=== PATIENT | female | born 2000 ===

== ENCOUNTER 2025-04-17 18:34 | Observation (INO) ==
[2025-04-17 19:07] VITALS: RESP 16; TEMP 97.7
[2025-04-17 19:09] VITALS: BP 121/76
[2025-04-17 19:43] LABS: Amphetamines+Metham, Urine Neg (Neg); MDMA (Ecstacy), Urine Neg (Neg); Marijuana, Urine Neg (Neg)
[2025-04-17 19:49] VITALS: PULSE 113; O2SAT 93
--- NOTE | 2025-04-18 07:59 | History & Physical Report ---
Date of Service April 17, 2025 Assessment & Plan (1) False labor after 37 completed weeks of gestation: Plan: Cindi is a 25-year-old G5, P4 at 39 weeks gestational age per patient report. Records not available at time of visit and she sees [facility] in [place]. Patient reporting bleeding and contractions. No bleeding noted on exam and photos of documented bleeding was mild slightly blood-tinged mucousy discharge. Cervix unchanged after labor evaluation. Contractions mild and irregular based on palpation and tocometer findings. Reactive NST noted throughout visit. Greater than 30 minutes spent in review of history, exam and discussion Admission and Anticipated Discharge Date Admission Date: April 17, 2025 History of Present Illness Primary Care Provider: NO PCP Cindi is a 25-year-old G5, P4 at around 39 weeks gestational age per patient report. Patient receives care from [place] [facility]. Patient presented for evaluation of bleeding. Patient had a picture of several mucousy type discharge with slight pinkish tinge. She reports having blood in the bathtub earlier today as well. She reporting irregular contractions but denying any vaginal bleeding at present. Denies any leakage of fluid. Noting good movement Allergies Allergy/AdvReac Type Severity Reaction Status Date / Time No Known Allergies Allergy Unverified 04/17/25 19:07 Home Medications Medication Instructions Recorded Confirmed Type famotidine 40 mg tablet 40 mg PO DAILY 04/17/25 04/17/25 History ferrous sulfate 325 mg (65 mg 325 mg PO DAILY 04/17/25 04/17/25 History iron) tablet (Iron (ferrous sulfate)) lurasidone 20 mg 1XD 04/17/25 04/17/25 History Patient History Medical History (Updated 04/18/25 @ 07:57 by Clay Horn MD) Presence of surgical screw in right hand Anemia Surgical History (Updated 04/17/25 @ 19:07 by Raquel Knight RN) Hx of hand surgery Social History Smoking Status: Never smoker Hx Alcohol Use: No Hx Substance Use: No Preferred Language: [place] Communication Ability: Effective Icebox Man Required: No Beliefs That Will Affect Care: None marital status: Single Current Living Situation: Other Current Living Situation Comment: homeless [facility] Feels Safe at Home: Yes Safety Concerns: Feels Safe At This Time Assistive Devices: None Physical Exam Genitourinary: Sterile speculum exam: No signs of bleeding or blood products noted. Normal physiologic appearing discharge present. Cervical exam notable for 3 cm dilation, 50% effaced, -2-3 station. Unchanged after labor evaluation Irregular mild contractions noted. Reactive NST throughout visit Results & Data Vital Signs (Past 12 Hours) Vital Signs Temp Pulse Resp BP Pulse Ox 04/17/25 19:26 110 H 93 04/17/25 19:21 110 H 93 04/17/25 19:16 119 H 93 04/17/25 19:11 105 H 94 04/17/25 19:06 107 H 94 04/17/25 19:04 16 04/17/25 19:04 36.5 C 16 04/17/25 18:39 20 04/17/25 18:39 36.5 C 98 H 20 121/76 Coding Level of Care Code 24228 OP VST NEW LOW 30 MIN Diagnoses False labor after 37 completed weeks of gestation O47.1 CPT Codes Misx Procedure Codes - 88056 NST: 16968 NST ([id number])
== END 2025-04-17 20:05 | disposition home or self-care (01) | DRG 833 ==
LOC: 4S1 18:49 → INTOOBSV 18:49